=== PATIENT | male | born 1970 | race Hispanic/Latino ===

== ENCOUNTER 2018-05-20 06:58 | Emergency (ER) | payer SELFPAY ==
[2018-05-20] MEDS ORDERED: Dexamethasone 4 MG TAB ONE (07:58)
[2018-05-20] MEDS ORDERED: Bicillin LA 1.2 MILLION UNITS/2 ML SYRINGE ONE (07:58)
== END 2018-05-20 08:18 | disposition home or self-care (01) ==
LOC: ERS 06:58
DX: J02.0 Streptococcal pharyngitis (principal); Z87.891 Personal history of nicotine dependence
CPT/HCPCS: 87430; 96372; J0561; J8540

== ENCOUNTER 2018-05-25 18:35 | Emergency (ER) | payer SELFPAY ==
[2018-05-25] MEDS ORDERED: Azithromycin 250 MG TAB ONE ×2 (19:21→19:22)
[2018-05-25] MEDS ORDERED: cefTRIAXone\\ROCEPHIN 500 MG VIAL ONE ×3 (19:22→19:23)
[2018-05-25] MEDS ORDERED: Dexamethasone 4 mg/ml Vial ONE (19:22)
[2018-05-25] MEDS ORDERED: Lidocaine 1% PF 5 ML VIAL ONE (19:24)
[2018-05-25] MEDS ORDERED: traMADol HCl 50 MG TAB ONE (19:28)
== END 2018-05-25 20:47 | disposition home or self-care (01) ==
LOC: ERS 18:35
DX: J02.9 Acute pharyngitis, unspecified (principal); J45.909 Unspecified asthma, uncomplicated; Z87.891 Personal history of nicotine dependence
CPT/HCPCS: 87081; 87430; 96372; J0696; J1100; J2001